=== PATIENT | female | born 1995 | race Caucasian/White ===

== ENCOUNTER 2021-03-22 03:38 | Inpatient (IN) | payer OTHER ==
[~2021-03-22] VITALS: Ht 167.6 cm; Wt 82.7 kg
[2021-03-22 03:45] VITALS: BP 122/72
[2021-03-22] MEDS: LACTATED RINGERS 1,000 ML IV SCH ×2 (04:15→15:01)
[2021-03-22] MEDS ORDERED: MISOPROSTOL 200 MCG TABLET ONE (04:29)
[2021-03-22] MEDS ORDERED: OXYTOCIN 30U/ 0.9% NaCL 500ML 500 ML ONE ×2 (04:29→16:04)
[2021-03-22] MEDS ORDERED: LIDOCAINE 1%, 20ML ONE (04:29)
[2021-03-22 04:30] VITALS: BP 122/72
[2021-03-22] MEDS ORDERED: SODIUM CITRATE/CITRIC ACID 30 ML UDC PO PRN (04:30)
[2021-03-22] MEDS ORDERED: FENTANYL PF 100 MCG/2ML IV PRN (04:30)
[2021-03-22] MEDS ORDERED: METOCLOPRAMIDE 5 MG/ML, 2ML IVPush PRN (04:30)
[2021-03-22] MEDS ORDERED: D5%-LACTATED RINGERS 1,000 ML IV SCH (04:30)
[2021-03-22] MEDS ORDERED: SODIUM CHLORIDE FLUSH 10ML SYR IVF PRN (04:30)
[2021-03-22] MEDS ORDERED: CALCIUM CARBONATE 500 MG TAB.CHEW PO PRN (04:30)
[2021-03-22] MEDS ORDERED: ONDANSETRON 2MG/ML, 2ML IVPush PRN (04:30)
[2021-03-22] MEDS ORDERED: ALUMINUM/MAG/SIMETHICONE 30 ML UDC PO PRN (04:30)
[2021-03-22] MEDS ORDERED: OXYTOCIN 30U/ 0.9% NaCL 500ML 500 ML IV ONE (04:30)
[2021-03-22] MEDS ORDERED: TERBUTALINE 1 MG/ML, 1ML IVPush PRN (04:30)
[2021-03-22] MEDS ORDERED: TERBUTALINE 1 MG/ML, 1ML SQ PRN (04:30)
[2021-03-22] MEDS ORDERED: FENTANYL PF 100 MCG/2ML IVPush PRN (04:30)
[2021-03-22 05:10] LABS: BASOPHILS % (AUTO) 0 % (0-1); EOSINOPHILS % (AUTO) 4 % (1-7); LYMPHOCYTES % (AUTO) 21 % (22-44); MEAN CORPUSCULAR HEMOGLOBIN 33.9 pg (27.0-34.8); MEAN CORPUSCULAR HGB CONC 35.1 g/dL (32.4-35.8); MEAN PLATELET VOLUME 9.9 fL (7.4-10.4); MONOCYTES % (AUTO) 8 % (2-9); NEUTROPHILS % (AUTO) 66 % (42-75); PLATELET COUNT 156 x10^3/uL (130-400); RED CELL DISTRIBUTION WIDTH 12.7 % (9.6-15.2)
[2021-03-22] MEDS ORDERED: IBUPROFEN 600 MG TABLET ONE (16:04)
[2021-03-22] MEDS ORDERED: OXYcodone/APAP 5/325MG TABLET ONE (16:04)
[2021-03-22] MEDS: IBUPROFEN 600 MG TABLET PO PRN ×2 (16:15→22:01)
[2021-03-22] MEDS: OXYcodone/APAP 5/325MG TABLET PO PRN ×2 (16:15→22:02)
[2021-03-22] MEDS: OXYTOCIN 30U/ 0.9% NaCL 500ML 500 ML IV SCH (16:15)
[2021-03-22] MEDS ORDERED: ACETAMINOPHEN 325 MG TABLET PO PRN ×2 (17:00)
[2021-03-22] MEDS ORDERED: MISOPROSTOL 200 MCG TABLET PR PRN (17:00)
[2021-03-22] MEDS ORDERED: CARBOPROST TROMETHAMINE 250 MCG/ML, 1ML IM PRN (17:00)
[2021-03-22] MEDS ORDERED: METHYLERGONOVINE 0.2 MG/ML IM PRN (17:00)
[2021-03-22] MEDS ORDERED: OXYcodone/APAP 5/325MG TABLET PO PRN (17:00)
[2021-03-22] MEDS ORDERED: SIMETHICONE 80 MG CHEW TAB PO PRN (17:00)
[2021-03-22] MEDS ORDERED: DIPH,PERTUSS(ACELL),TET VAC/PF NC IM-VACC PRN (17:00)
[2021-03-22 18:00] VITALS: BP 102/65
[2021-03-22 19:37] VITALS: BP 100/64
[2021-03-22] MEDS: DOCUSATE 100 MG CAPSULE PO PRN (20:19)
[2021-03-22 23:44] LABS: BASOPHILS % (AUTO) 0 % (0-1); EOSINOPHILS % (AUTO) 1 % (1-7); LYMPHOCYTES % (AUTO) 17 % (22-44); MEAN CORPUSCULAR HEMOGLOBIN 33.4 pg (27.0-34.8); MEAN CORPUSCULAR HGB CONC 33.9 g/dL (32.4-35.8); MEAN PLATELET VOLUME 9.3 fL (7.4-10.4); MONOCYTES % (AUTO) 9 % (2-9); NEUTROPHILS % (AUTO) 73 % (42-75); PLATELET COUNT 171 x10^3/uL (130-400); RED BLOOD COUNT 3.14 x10^6/uL (3.82-5.3); RED CELL DISTRIBUTION WIDTH 12.4 % (9.6-15.2)
[2021-03-23 00:15] VITALS: BP 90/50
[2021-03-23] MEDS: OXYTOCIN 30U/ 0.9% NaCL 500ML 500 ML IV SCH ×2 (00:16→13:00)
[2021-03-23 04:20] VITALS: BP 98/66
[2021-03-23] MEDS: IBUPROFEN 600 MG TABLET PO PRN (04:23)
[2021-03-23] MEDS: OXYcodone/APAP 5/325MG TABLET PO PRN ×2 (04:23→09:00)
[2021-03-23 07:20] VITALS: BP 100/65
[2021-03-23] MEDS: DOCUSATE 100 MG CAPSULE PO PRN (09:00)
[2021-03-23] MEDS ORDERED: PRENATAL VIT/IRON/FA 1 EACH TABLET PO SCH (09:00)
[2021-03-23 13:55] VITALS: BP 111/74
== END 2021-03-23 13:42 | disposition home or self-care (01) | DRG 807 ==
LOC: LDOP 03:38 → LDIP 04:23 → 2NW 17:45
PROVIDERS: ADMIT Student in an Organized Health Care Education/Training Program; ATTEND Student in an Organized Health Care Education/Training Program
PROC: 10E0XZZ Delivery of Products of Conception, External Approach (ICD-10-PCS; principal; 2021-03-22)
PROC: 0HQ9XZZ Repair Perineum Skin, External Approach (ICD-10-PCS; 2021-03-22)
DX: O70.0 First degree perineal laceration during delivery (principal); Z37.0 Single live birth; Z3A.39 39 weeks gestation of pregnancy; Z20.822 Contact with and (suspected) exposure to COVID-19; Z80.41 Family history of malignant neoplasm of ovary
CPT/HCPCS: 36415; 85025; 86592; 86850; 86900; 87635; G0378; J3010; J2590; J7120